=== PATIENT | male | born 1975 | race American Indian/Alaskan Native ===

== ENCOUNTER 2016-11-20 17:17 | Emergency (ER) | payer MEDICAID ==
[2016-11-20] MEDS ORDERED: Sodium Chloride 0.9% 1,000 ML IV ONE (18:01)
[2016-11-20] MEDS ORDERED: Sodium Chloride 0.9% 0 ML ONE (18:18)
[2016-11-20] MEDS ORDERED: Sodium Chloride 0.9% 1,000 ML ONE (18:20)
[2016-11-20 18:36] LABS: CHLORIDE 101 mmol/L (98-107)
[2016-11-20 18:37] LABS: SODIUM 137 mmol/L (132-148)
[2016-11-20 18:39] LABS: ALB/GLOB RATIO 1.2 (1.0-2.1); AST/SGOT 75 U/L (17-59); BASO # 0.1 K/uL (0.0-0.2); BILIRUBIN,TOTAL 3.2 mg/dL (0.2-1.3); CARBON DIOXIDE 24 mmol/L (22-30); EOS % 0.2 % (0.0-4.0); GFR AFRICAN-AMERICAN > 60; HEMATOCRIT 37.3 % (35.0-51.0); LYMPH # 1.1 K/uL (1.0-4.3); LYMPH % 19.3 % (20.0-40.0); MEAN CELL VOLUME 85.7 fL (80.0-94.0); MEAN CORPUSCULAR HEMOGLOBIN 27.6 pg (27.0-31.0); MEAN CORPUSCULAR HGB CONC 32.2 g/dL (33.0-37.0); MONO # 0.5 K/uL (0.0-0.8); MONO % 8.5 % (0.0-10.0); NRBC % 0.1 % (0.0-2.0); POTASSIUM 5.7 mmol/L (3.6-5.2); RED CELL DISTRIBUTION WIDTH 13.2 % (11.5-14.5); WHITE BLOOD COUNT 5.5 K/uL (4.8-10.8)
[2016-11-20 18:40] LABS: ALCOHOL SERUM < 10 mg/dl (0-10); ALKALINE PHOSPHATASE 71 U/L (38-126); ALT/SGPT 25 U/L (21-72); BLOOD UREA NITROGEN 18 mg/dL (9-20); CALCIUM 8.9 mg/dl (8.6-10.4); GLUCOSE,RANDOM 97 mg/dL (75-110)
[2016-11-20 19:29] LABS: CHLORIDE 101 mmol/L (98-107)
[2016-11-20 19:30] LABS: POTASSIUM 3.4 mmol/L (3.6-5.2); SODIUM 139 mmol/L (132-148)
[2016-11-20 19:32] LABS: GFR AFRICAN-AMERICAN > 60
[2016-11-20 19:33] LABS: BLOOD UREA NITROGEN 16 mg/dL (9-20); CALCIUM 8.6 mg/dl (8.6-10.4); CARBON DIOXIDE 25 mmol/L (22-30); GLUCOSE,RANDOM 80 mg/dL (75-110)
--- NOTE | 2016-11-20 20:10 | C.PDOC ---
History Of Present Illness 41 year old male presents to the ED with complaints of being in "withdrawl." Patient denies nausea, vomiting, chest pain, shortness of breath, fever, suicidal, or homicidal ideations. Time Seen by Provider: 11/20/16 17:54 Chief Complaint (Nursing): Substance Abuse History Per: Patient History/Exam Limitations: no limitations Onset/Duration Of Symptoms: Hrs Current Symptoms Are (Timing): Still Present Suicide/Self Injury Attempted (Context): None Associated Symptoms: denies: Suicidal Thoughts, Suicidal Plan Involuntary Hold By: None Recent travel outside of the [place]: No Past Medical History Reviewed: Historical Data, Nursing Documentation, Vital Signs Vital Signs: Last Vital Signs Temp 98.5 F 11/20/16 20:32 Pulse 84 11/20/16 20:32 Resp 18 11/20/16 20:32 BP 149/99 H 11/20/16 20:32 Pulse Ox 96 11/20/16 20:32 - Medical History PMH: Paranoia, Seizures (alcohol withdrawal) - [facility] Procedures DETOXIFICATION SERVICES FOR SUBSTANCE ABUSE TREATMENT (09/26/15) INDIV PSYCHOTHERAPY FOR SUBSTANCE ABUSE TREATMENT, SUPPORT (09/26/15) INDIV PSYCHOTHERAPY FOR SUBSTANCE ABUSE, PSYCHOEDUCATION (09/26/15) Family History: States: Unknown Family Hx - Social History Hx Alcohol Use: Yes Hx Substance Use: No - Immunization History Hx Tetanus Toxoid Vaccination: Yes Hx Influenza Vaccination: Yes Hx Pneumococcal Vaccination: No Review Of Systems Constitutional: Negative for: Fever, Chills Cardiovascular: Negative for: Chest Pain, Palpitations Respiratory: Negative for: Cough, Shortness of Breath Gastrointestinal: Negative for: Nausea, Vomiting, Abdominal Pain, Diarrhea Neurological: Negative for: Headache Physical Exam - Physical Exam Appears: Non-toxic, No Acute Distress Skin: Warm, Dry Head: Atraumatic Eye(s): bilateral: Normal Inspection, PERRL, EOMI Oral Mucosa: Moist Tongue: Normal Appearing, Other (tongue fasciculations) Neck: Supple Chest: Symmetrical, No Deformity Cardiovascular: Rhythm Regular, No Murmur Respiratory: Normal Breath Sounds, No Rales, No Rhonchi, No Wheezing Gastrointestinal/Abdominal: Soft, No Tenderness, No Distention, No Guarding, No Rebound Extremity: Normal ROM, No Tenderness Neurological/Psych: Oriented x3, Normal Speech, Normal Cognition, Other (No tremors. ) ED Course And Treatment - Laboratory Results Result Diagrams: 11/20/16 18:19 11/20/16 19:19 O2 Sat by Pulse Oximetry: 97 (room air ) Progress Note: Upon re-evaluation, patient is still not withdrawing. Disposition - Disposition Referrals: [facility], [Non-Staff] - Disposition: HOME/ ROUTINE Disposition Time: 19:40 Condition: GOOD Additional Instructions: Thank you for letting us take care of you today. Your provider was Dr. Brantley. The emergency medical care you received today was directed at your acute symptoms. If you were prescribed any medication, please fill it and take as directed. It may take several days for your symptoms to resolve. Return to the Emergency Department if your symptoms worsen, do not improve, or if you have any other problems. Please contact your doctor or call one of the physicians/clinics you have been referred to that are listed on the Patient Visit Information form that is included in your discharge packet. Bring any paperwork you were given at discharge with you along with any medications you are taking to your follow up visit. Our treatment cannot replace ongoing medical care by a primary care provider (PCP) outside of the emergency department. Thank you for allowing the [facility] team to be part of your care today. Follow up with your doctor in 2-3 days for re-evaluation and further management. Instructions: Abuse of Alcohol (ED) Forms: [employer] (Swedish) - Clinical Impression Clinical Impression: Alcohol dependence - Scribe Statement The provider has reviewed the documentation as recorded by the Scribe Regine Sidhu All medical record entries made by the Scribe were at my direction and personally dictated by me. I have reviewed the chart and agree that the record accurately reflects my personal performance of the history, physical exam, medical decision making, and the department course for this patient. I have also personally directed, reviewed, and agree with the discharge instructions and disposition.
[2016-11-20 20:33] VITALS: BP 149/99; PULSE 84; RESP 18; TEMP 98.5
[2016-11-20 21:34] VITALS: O2SAT 97
== END 2016-11-20 20:30 | disposition home or self-care (01) ==
LOC: C.ER 17:17
DX: F10.20 Alcohol dependence, uncomplicated (principal); Y90.0 Blood alcohol level of less than 20 mg/100 ml
CPT/HCPCS: 80048; 80053; 80320; 80324; 80345; 80346; 80349; 80353; 80358; 80361; 82948; 83690; 83992; 85025; 96361; 96374; 96375; 99284; J2405; J7040

== ENCOUNTER 2017-01-22 01:44 | Emergency (ER) | payer MEDICAID ==
[2017-01-22] MEDS ORDERED: Aspirin 325 mg EC Tablets PO STA (02:38)
--- NOTE | 2017-01-22 02:39 | C.PDOC ---
History Of Present Illness 41 y/o male with hx etoh abuse c/o left side cp starting about an hour prior to arrival while pt was in bed; denies any diaphoresis, radiation of pain, nausea, vomiting, shortness of breath. pt sts he feels like he may be in withdrawal form alcohol, last drink was 3 days ago. pt seen in ed 2 days ago, no detox bed available then, Time Seen by Provider: 01/22/17 01:59 Chief Complaint (Nursing): Chest Pain History Per: Patient History/Exam Limitations: no limitations Onset/Duration Of Symptoms: Hrs (1) Current Symptoms Are (Timing): Still Present Severity: Mild Quality: Sharp Associated Symptoms: denies: Nausea, Dyspnea, Diaphoresis, Syncope Modifying Factors: None Exacerbating Factors: None Past Medical History Reviewed: Historical Data, Nursing Documentation, Vital Signs Vital Signs: Last Vital Signs Temp 97.7 F 01/22/17 07:42 Pulse 70 01/22/17 07:16 Resp 14 01/22/17 07:16 BP 117/72 01/22/17 07:16 Pulse Ox 98 01/22/17 08:31 - Medical History PMH: Back Problems, Paranoia, Seizures (alcohol withdrawal) Denies: HIV, HTN, Chronic Kidney Disease, Sexually Transmitted Disease Other PMH: alcohol abuse - [facility] Procedures DETOXIFICATION SERVICES FOR SUBSTANCE ABUSE TREATMENT (09/26/15) INDIV PSYCHOTHERAPY FOR SUBSTANCE ABUSE TREATMENT, SUPPORT (09/26/15) INDIV PSYCHOTHERAPY FOR SUBSTANCE ABUSE, PSYCHOEDUCATION (09/26/15) Family History: States: Unknown Family Hx - Social History Hx Alcohol Use: Yes (4-8 beers daily) Hx Substance Use: No - Immunization History Hx Tetanus Toxoid Vaccination: No Hx Influenza Vaccination: No Hx Pneumococcal Vaccination: No Review Of Systems Constitutional: Negative for: Fever, Chills Cardiovascular: Positive for: Chest Pain. Negative for: Palpitations, Paroxysmal Noc. Dyspnea, Light Headedness Respiratory: Negative for: Cough, Shortness of Breath Gastrointestinal: Negative for: Nausea, Vomiting, Abdominal Pain Skin: Negative for: Rash Neurological: Negative for: Weakness, Numbness Physical Exam - Physical Exam Appears: Non-toxic, No Acute Distress, Other (dozing on stretcher, easily arousable) Skin: Warm, Dry Head: Atraumatic, Normacephalic Oral Mucosa: Moist Tongue: Other (no fasiculations) Neck: Supple Chest: No Deformity, Tenderness (minimal tenderness medial to left nipple,no swelling, ecchymosis, warmth noted. ) Cardiovascular: Rhythm Regular, No Murmur Respiratory: Normal Breath Sounds, No Accessory Muscle Use, No Rales, No Rhonchi , No Stridor, No Wheezing Gastrointestinal/Abdominal: Bowel Sounds, Soft, No Tenderness Extremity: Normal ROM, No Tenderness, No Calf Tenderness, No Swelling, Other ( no tremors. bilateral clubbing to nails of both hands. ) Neurological/Psych: Oriented x3, Normal Speech, Normal Cognition ED Course And Treatment - Laboratory Results Result Diagrams: 01/22/17 03:03 01/22/17 03:03 ECG: Interpreted By Me, Viewed By Me ECG Rhythm: Sinus Rhythm ECG Interpretation: Normal Interpretation Of ECG: nsr at 62 bpm O2 Sat by Pulse Oximetry: 98 Pulse Ox Interpretation: Normal Medical Decision Making Medical Decision Making: p;t with left sided cp x 1 hour, atypical sounding. pt in no acute distress. will get egk, cxr, labs, and re-eval. 555 am pt sleeping. easily aroused. pt reports cp resolved. pt to have second set ce at 8 am, d/c with cards f/u if neg. Disposition Counseled Patient/Family Regarding: Studies Performed, Diagnosis, Need For Followup - Disposition Referrals: [facility] [Outside] Disposition Time: 08:38 Condition: STABLE Instructions: Chest Pain (ED) Forms: [facility] (Thai), General Discharge Instructions - Clinical Impression Clinical Impression: Chest pain Physician Patient Turnover Patient Signed Over To: Ambika Ibarra Handoff Comments: d/c when second trop resulted neg
[2017-01-22 03:09] LABS: BASO # 0.1 K/uL (0.0-0.2); BASO % 1.2 % (0.0-2.0); EOS # 0.1 K/uL (0.0-0.7); EOS % 2.4 % (0.0-4.0); LYMPH % 33.4 % (20.0-40.0); MEAN CORPUSCULAR HEMOGLOBIN 27.8 pg (27.0-31.0); MEAN CORPUSCULAR HGB CONC 32.7 g/dL (33.0-37.0); MEAN PLATELET VOLUME 9.1 fL (7.2-11.7); MONO # 0.6 K/uL (0.0-0.8); MONO % 9.9 % (0.0-10.0); NRBC % 0.1 % (0.0-2.0); RED CELL DISTRIBUTION WIDTH 14.5 % (11.5-14.5); WHITE BLOOD COUNT 6.1 K/uL (4.8-10.8)
[2017-01-22 03:13] LABS: CHLORIDE 100 mmol/L (98-107); POTASSIUM 3.6 mmol/L (3.6-5.2); SODIUM 134 mmol/L (132-148)
[2017-01-22 03:15] LABS: BILIRUBIN,TOTAL 1.8 mg/dL (0.2-1.3); CARBON DIOXIDE 25 mmol/L (22-30); GFR AFRICAN-AMERICAN > 60
[2017-01-22 03:16] LABS: ALB/GLOB RATIO 1.1 (1.0-2.1); ALKALINE PHOSPHATASE 68 U/L (38-126); ALT/SGPT 41 U/L (21-72); AST/SGOT 32 U/L (17-59); BLOOD UREA NITROGEN 14 mg/dL (9-20); CALCIUM 9.2 mg/dl (8.6-10.4); GLUCOSE,RANDOM 78 mg/dL (75-110); TOTAL PROTEIN 8.1 g/dL (6.3-8.3)
[2017-01-22 03:17] LABS: ALCOHOL SERUM < 10 mg/dl (0-10)
[2017-01-22 07:21] VITALS: BP 117/72
[2017-01-22 08:32] VITALS: O2SAT 98
[2017-01-22 09:19] VITALS: PULSE 67; RESP 16; TEMP 97.8
--- NOTE | 2017-01-22 11:25 | RAD ---
HISTORY: chest pain COMPARISON: Chest x-ray performed 03/09/16 TECHNIQUE: Chest PA and lateral FINDINGS: LUNGS: No focal consolidation. Please note that chest x-ray has limited sensitivity for the detection of pulmonary masses. PLEURA: No significant pleural effusion identified. No definite pneumothorax. CARDIOVASCULAR: Heart size appears within normal limits. Mildly ectatic aorta. OSSEOUS STRUCTURES: No acute osseous abnormality identified. VISUALIZED UPPER ABDOMEN: Unremarkable. OTHER FINDINGS: None. IMPRESSION: No focal consolidation, significant pleural effusion, or definite pneumothorax identified.
--- NOTE | 2017-01-24 16:23 | CARD ---
APPROVED REPORT EKG Measurement Heart [id number] <Conclusion> Normal sinus rhythm Normal ECG
== END 2017-01-22 09:19 | disposition home or self-care (01) ==
LOC: C.ER 01:44
DX: R07.9 Chest pain, unspecified (principal)

== ENCOUNTER 2017-03-20 14:51 | Emergency (ER) | payer MEDICAID ==
[2017-03-20 15:39] VITALS: O2SAT 98
--- NOTE | 2017-03-20 17:53 | C.PDOC ---
History Of Present Illness Pt states that he is feeling withdrawal symptoms since his last alcohol intake was yesterday. Time Seen by Provider: 03/20/17 15:51 Chief Complaint (Nursing): Substance Abuse History Per: Patient Onset/Duration Of Symptoms: Days (1) Current Symptoms Are (Timing): Still Present Suicide/Self Injury Attempted (Context): None Modifying Factor(s): Alcohol Severity: Moderate Associated Symptoms: denies: Suicidal Thoughts, Suicidal Plan Additional History Per: Prior Records Past Medical History Reviewed: Historical Data, Nursing Documentation, Vital Signs Vital Signs: Last Vital Signs Temp 98.6 F 03/20/17 17:54 Pulse 98 H 03/20/17 17:54 Resp 18 03/20/17 17:54 BP 141/91 H 03/20/17 17:54 Pulse Ox 98 03/20/17 17:55 - Medical History PMH: Back Problems, Paranoia, Chronic Kidney Disease, Seizures (alcohol withdrawal) - [facility] Procedures DETOXIFICATION SERVICES FOR SUBSTANCE ABUSE TREATMENT (09/26/15) INDIV PSYCHOTHERAPY FOR SUBSTANCE ABUSE TREATMENT, SUPPORT (09/26/15) INDIV PSYCHOTHERAPY FOR SUBSTANCE ABUSE, PSYCHOEDUCATION (09/26/15) Family History: States: Unknown Family Hx - Social History Hx Alcohol Use: Yes Hx Substance Use: No - Immunization History Hx Tetanus Toxoid Vaccination: No Hx Influenza Vaccination: No Hx Pneumococcal Vaccination: No Review Of Systems Except As Marked, All Systems Reviewed And Found Negative. Constitutional: Negative for: Fever Cardiovascular: Negative for: Chest Pain Respiratory: Negative for: Shortness of Breath Gastrointestinal: Negative for: Vomiting, Abdominal Pain Musculoskeletal: Negative for: Neck Pain Skin: Negative for: Rash Neurological: Negative for: Weakness, Numbness, Seizures, Altered Mental Status Psych: Positive for: Withdrawal. Negative for: Psychosis Physical Exam - Physical Exam Appears: Non-toxic, No Acute Distress Skin: Normal Color, Warm, Dry Head: Atraumatic, Normacephalic Eye(s): bilateral: PERRL, EOMI Neck: Normal ROM, Supple Cardiovascular: Rhythm Regular Respiratory: Normal Breath Sounds, No Accessory Muscle Use Gastrointestinal/Abdominal: Soft, No Tenderness Back: No CVA Tenderness Extremity: Normal ROM Neurological/Psych: Oriented x3, Normal Speech, Normal Cognition, Normal Motor, Normal Sensation, Other (mild tremor) ED Course And Treatment O2 Sat by Pulse Oximetry: 98 Pulse Ox Interpretation: Normal Progress Note: I want to admit pt to detox from alcohol, however pt is not willing to stay today. He states that he must leave because he has an appointment tomorrow. I tried to convince him to stay today, but he is still refusing and wants to leave AMA. He feels better after the dose of Librium. Reassessment Condition: Improved Against Medical Advice - AMA Patient Left Against Medical Advice: The patient declines admission to the hospital and wishes to leave the Emergency Department. This action is against my medical advice. This decision was made with informed refusal. The patient was told that admission to the hospital is necessary. Explanation of the reasons why were discussed. The risks of leaving were explained to the patient and include, but are not limited to, worsening of known or currently unknown conditions, permanent disability and from undiagnosed or untreated conditions. The patient has the capacity to make this informed decision and understands my explanation of the current medical problem and risks of leaving. The patient voluntarily accepts these risks and signed an AMA form documenting our conversation. The patient was given the opportunity to ask questions and reconsider. The patient was encouraged to return to the Emergency Department at any time for further care. Disposition Counseled Patient/Family Regarding: Diagnosis, Need For Followup, Rx Given - Disposition Disposition: AGAINST MEDICAL ADVICE Disposition Time: 17:54 Condition: FAIR Additional Instructions: Follow up with your doctor as soon as possible. Return to the ER if you change your mind, develop worsening of symptoms or if you have any other concerns. Prescriptions: chlordiazePOXIDE [Chlordiazepoxide HCl] 25 mg PO PRN PRN #12 cap PRN Reason: Symptoms Of Alcohol Withdrawl Instructions: Abuse of Alcohol (ED), Against Medical Advice (ED) Forms: [employer] (Venezuelan) - Clinical Impression Clinical Impression: Alcohol abuse, Left against medical advice
[2017-03-20 17:56] VITALS: BP 141/91; PULSE 98; RESP 18; TEMP 98.6
== END 2017-03-20 18:13 | disposition left against medical advice (07) ==
LOC: C.ER 14:51
DX: F10.10 Alcohol abuse, uncomplicated (principal)

== ENCOUNTER 2017-09-01 14:18 | Emergency (ER) | payer MEDICAID ==
[2017-09-01 14:29] VITALS: BP 134/86; PULSE 85; RESP 18; TEMP 98.6; O2SAT 97
--- NOTE | 2017-09-01 15:26 | C.PDOC ---
History Of Present Illness 42 y/o male presents to the ED with a complaint of right 5th toe pain after tripping and sustaining an injury yesterday. Patient denies any sensory changes , bleeding, drainage or other injuries. No other physical complaints. Time Seen by Provider: 09/01/17 14:30 Chief Complaint (Nursing): Lower Extremity Problem/Injury History Per: Patient History/Exam Limitations: no limitations Onset/Duration Of Symptoms: Days (yesterday) Current Symptoms Are (Timing): Still Present Severity: Mild Recent travel outside of the [place]: No Past Medical History Reviewed: Historical Data, Nursing Documentation, Vital Signs Vital Signs: Last Vital Signs Temp 98.6 F 09/01/17 14:27 Pulse 85 09/01/17 14:27 Resp 18 09/01/17 14:27 BP 134/86 09/01/17 14:27 Pulse Ox 97 09/01/17 16:08 - Medical History PMH: Back Problems, Paranoia, Chronic Kidney Disease, Seizures (alcohol withdrawal) Surgical History: No Surg Hx - [facility] Procedures DETOXIFICATION SERVICES FOR SUBSTANCE ABUSE TREATMENT (09/26/15) INDIV PSYCHOTHERAPY FOR SUBSTANCE ABUSE TREATMENT, SUPPORT (09/26/15) INDIV PSYCHOTHERAPY FOR SUBSTANCE ABUSE, PSYCHOEDUCATION (09/26/15) Family History: States: No Known Family Hx - Social History Hx Tobacco Use: No Hx Alcohol Use: Yes Hx Substance Use: No - Immunization History Hx Tetanus Toxoid Vaccination: No Hx Influenza Vaccination: No Hx Pneumococcal Vaccination: No Review Of Systems Constitutional: Negative for: Fever, Chills Genitourinary: Negative for: Rash Musculoskeletal: Positive for: Foot Pain (right fifth toe pain) Neurological: Negative for: Weakness, Numbness, Headache Physical Exam - Physical Exam Appears: Well, Non-toxic, No Acute Distress Skin: Normal Color, Warm, Dry, No Rash, No Ecchymosis Cardiovascular: Rhythm Regular Respiratory: Normal Breath Sounds, No Rales, No Rhonchi, No Wheezing Extremity: Normal ROM, Tenderness (tenderness to palpation of right fifth toe, greater at lateral aspect), No Pedal Edema, No Calf Tenderness, Capillary Refill (< 2 sec all digits ), No Deformity, Swelling (mild swelling right fifth toe) Extremity: Bilateral: Normal Color And Temperature Pulses: Left Dorsalis Pedis: Normal, Right Dorsalis Pedis: Normal Neurological/Psych: Oriented x3, Normal Sensation Gait: Steady ED Course And Treatment O2 Sat by Pulse Oximetry: 97 (RA) Pulse Ox Interpretation: Normal - Other Rad right foot Xray X-Ray: Interpreted by Me, Viewed By Me (nondisplcaed fx 5th phalanx) Progress Note: Patient given PO Motrin. Xrays of right foot ordered and reviewed, showed nondisplaced fx 5th phalanx. Toe marcel taped by information technology architect. Patient givne Rx for pain medication and instructed to follow up with podiatry within 1 week. He understands he should return to ED if he has any concerning symptoms. Disposition Counseled Patient/Family Regarding: Studies Performed, Diagnosis, Need For Followup, Rx Given - Disposition Referrals: Podiatry Clinic [Outside] [facility] [Outside] Disposition: HOME/ ROUTINE Disposition Time: 15:30 Condition: STABLE Additional Instructions: FOLLOW UP WITH PODIATRY WITHIN 1 WEEK USE PAIN MEDICATION NEEDED ELEVATE FOOT SEVERAL TIMES DAILY Prescriptions: Acetaminophen [Tylenol 325mg tab] 650 mg PO Q6 PRN #30 tab PRN Reason: pain/fever Instructions: Toe Fracture (DC) Forms: [employer] (Ghanaian) Print Language: EAST TIMORESE - POA Present On Arrival: Falls Or Trauma - Clinical Impression Clinical Impression: Fracture of fifth toe, right, closed - Scribe Statement The provider has reviewed the documentation as recorded by the Scribe Sugar Milian All medical record entries made by the Scribe were at my direction and personally dictated by me. I have reviewed the chart and agree that the record accurately reflects my personal performance of the history, physical exam, medical decision making, and the department course for this patient. I have also personally directed, reviewed, and agree with the discharge instructions and disposition.
--- NOTE | 2017-09-01 15:30 | RAD ---
PROCEDURE: Right Foot Radiographs. HISTORY: right lateral foot/5th toe pain COMPARISON: None. FINDINGS: BONES: Questionable oblique nondisplaced fracture base of 5th distal phalanx. This is only seen in a single oblique view. No other fracture identified. JOINTS: Normal. SOFT TISSUES: Normal. OTHER FINDINGS: None. IMPRESSION: Questionable oblique nondisplaced intra-articular fracture base of 5th distal phalanx.
== END 2017-09-01 15:35 | disposition home or self-care (01) ==
LOC: C.ER 14:18
DX: S92.534A Nondisplaced fracture of distal phalanx of right lesser toe(s), initial encounter for closed fracture (principal); W01.0XXA Fall on same level from slipping, tripping and stumbling without subsequent striking against object, initial encounter; Y92.9 Unspecified place or not applicable

== ENCOUNTER 2018-07-06 17:48 | Inpatient (IN) | payer MEDICAID ==
[2018-07-06 19:43] LABS: BASO # 0.1 K/uL (0.0-0.2); EOS # 0.1 K/uL (0.0-0.7); LYMPH # 1.1 K/uL (1.0-4.3); MONO # 0.5 K/uL (0.0-0.8)
[2018-07-06 19:54] LABS: BASO % 2.8 % (0.0-2.0); LYMPH % 38.3 % (20.0-40.0); MEAN CELL VOLUME 88.3 fL (80.0-94.0); MEAN CORPUSCULAR HEMOGLOBIN 29.2 pg (27.0-31.0); MEAN CORPUSCULAR HGB CONC 33.1 g/dL (33.0-37.0); MEAN PLATELET VOLUME 9.5 fL (7.2-11.7); MONO % 17.5 % (0.0-10.0); NEUT # 1.1 K/uL (1.8-7.0); NEUT % 39.4 % (50.0-75.0); NRBC % 0.1 % (0.0-2.0); RBC 4.45 Mil/uL (4.40-5.90); RED CELL DISTRIBUTION WIDTH 16.9 % (11.5-14.5); WHITE BLOOD COUNT 2.8 K/uL (4.8-10.8)
[2018-07-06 19:59] LABS: ALB/GLOB RATIO 1.5 (1.0-2.1); ALBUMIN 4.7 g/dL (3.5-5.0); ALT/SGPT 132 U/L (21-72); AST/SGOT 253 U/L (17-59); BLOOD UREA NITROGEN 15 mg/dL (9-20); CALCIUM 8.8 mg/dl (8.6-10.4); GFR NON-AFRICAN AMERICAN > 60
[2018-07-06 20:20] LABS: URINE BILIRUBIN NEGATIVE (NEGATIVE); URINE CLARITY Clear (Clear); URINE COLOR YELLOW (YELLOW); URINE GLUCOSE (UA) NEGATIVE (Normal)
[2018-07-06 20:21] LABS: PH,URINE 5.5 (5.0-8.0); URINE BLOOD TRACE-INTACT (NEGATIVE); URINE LEUKOCYTE ESTERASE NEGATIVE Leu/uL (Negative); URINE PROTEIN NEGATIVE (NEGATIVE); URINE UROBILINOGEN 0.2E.U./dL mg/dL (0.2-1.0)
[2018-07-06 20:36] LABS: BARBITURATES, UR NEGATIVE (NEGATIVE); BENZODIAZEPINES, UR NEGATIVE (NEGATIVE); OPIATES, UR NEGATIVE (NEGATIVE); PHENCYCLIDINE, UR NEGATIVE (NEGATIVE)
--- NOTE | 2018-07-06 20:54 | C.PDOC ---
History Of Present Illness 43 year old male presents to ED requesting alcohol detox. Patient states that he had his last drink 3-4 hours ago. Patient drinks a combination of hard liquor and beer in various amounts. Patient has no physical complaints. Chief Complaint (Nursing): Substance Abuse History Per: Patient History/Exam Limitations: no limitations Onset/Duration Of Symptoms: Other (requesting detox) Suicide/Self Injury Attempted (Context): None Modifying Factor(s): Alcohol Past Medical History Reviewed: Historical Data, Nursing Documentation, Vital Signs Vital Signs: Last Vital Signs Temp 98.3 F 07/06/18 18:18 Pulse 115 H 07/06/18 18:18 Resp 18 07/06/18 18:18 BP 155/89 H 07/06/18 18:18 Pulse Ox 96 07/06/18 18:18 - Medical History PMH: Back Problems, Benign Prostatic Hyperplasia, Paranoia, Chronic Kidney Disease, Seizures (alcohol withdrawal) Surgical History: No Surg Hx - [facility] Procedures DETOXIFICATION SERVICES FOR SUBSTANCE ABUSE TREATMENT (09/26/15) INDIV PSYCHOTHERAPY FOR SUBSTANCE ABUSE TREATMENT, SUPPORT (09/26/15) INDIV PSYCHOTHERAPY FOR SUBSTANCE ABUSE, PSYCHOEDUCATION (09/26/15) Family History: States: Unknown Family Hx - Social History Hx Tobacco Use: No Hx Alcohol Use: Yes Hx Substance Use: No - Immunization History Hx Tetanus Toxoid Vaccination: No Hx Influenza Vaccination: No Hx Pneumococcal Vaccination: No Review Of Systems Constitutional: Negative for: Fever, Chills Cardiovascular: Negative for: Chest Pain Respiratory: Negative for: Shortness of Breath Gastrointestinal: Negative for: Nausea, Vomiting, Abdominal Pain Physical Exam - Physical Exam Appears: Well, Non-toxic, No Acute Distress Skin: Normal Color, Warm, Dry Head: Atraumatic, Normacephalic Neck: Normal ROM, Supple Chest: Symmetrical, No Deformity Cardiovascular: Rhythm Regular, No Murmur Respiratory: No Accessory Muscle Use, No Rales, No Rhonchi, No Wheezing Gastrointestinal/Abdominal: Soft, No Tenderness Neurological/Psych: Oriented x3, Normal Speech, Normal Cognition ED Course And Treatment - Laboratory Results Result Diagrams: 07/06/18 19:36 07/06/18 19:36 Lab Results: Total Bilirubin 0.8 mg/dL (0.2-1.3) 07/06/18 19:36 AST 253 U/L (17-59) H D 07/06/18 19:36 ALT 132 U/L (21-72) H D 07/06/18 19:36 Alkaline Phosphatase 92 U/L (38-126) 07/06/18 19:36 Total Protein 7.9 g/dL (6.3-8.3) 07/06/18 19:36 Albumin 4.7 g/dL (3.5-5.0) 07/06/18 19:36 Globulin 3.2 gm/dL (2.2-3.9) 07/06/18 19:36 Albumin/Globulin Ratio 1.5 (1.0-2.1) 07/06/18 19:36 Urine Color Yellow (YELLOW) 07/06/18 19:36 Urine Clarity Clear (Clear) 07/06/18 19:36 Urine pH 5.5 (5.0-8.0) 07/06/18 19:36 Ur Specific [place] 1.015 (1.003-1.030) 07/06/18 19:36 Urine Protein Negative mg/dL (NEGATIVE) 07/06/18 19:36 Urine Glucose (UA) Negative mg/dL (Normal) 07/06/18 19:36 Urine Ketones Negative mg/dL (NEGATIVE) 07/06/18 19:36 Urine Blood Trace-intact (NEGATIVE) 07/06/18 19:36 Urine Nitrate Negative (NEGATIVE) 07/06/18 19:36 Urine Bilirubin Negative (NEGATIVE) 07/06/18 19:36 Urine Urobilinogen 0.2e.u./dl mg/dL (0.2-1.0) 07/06/18 19:36 Ur Leukocyte Esterase Negative Ruth/uL (Negative) 07/06/18 19:36 O2 Sat by Pulse Oximetry: 96 (in RA) Medical Decision Making Medical Decision Making: Impression: 43 year old male presents to ED requesting alcohol detox. Plan: Labs ordered with drug screen and UA for patient Patient medically cleared for admission. Patient admitted under Dr. Gonzalez's service. Disposition - Disposition Disposition Time: 20:30 Condition: STABLE - Clinical Impression Clinical Impression: Alcohol use disorder, severe, dependence - Scribe Statement The provider has reviewed the documentation as recorded by the Scribe (Charis Velasco) All medical record entries made by the Scribe were at my direction and personally dictated by me. I have reviewed the chart and agree that the record accurately reflects my personal performance of the history, physical exam, medical decision making, and the department course for this patient. I have also personally directed, reviewed, and agree with the discharge instructions and disposition.
--- NOTE | 2018-07-06 21:25 | PCM.BM ---
<Rita Dobbs - Last Filed: 07/06/18 21:23> Treatment Plan Problems - Problems identified on initial assessmt Anxiety Related to Substance Abuse Date Initiated: 07/06/18 Time Initiated: 21:23 Assessment reference: NA Status: Active Defensive Coping Date Initiated: 07/06/18 Time Initiated: 21:23 Assessment reference: NA Status: Active Knowledge Deficit: Alcohol Use Date Initiated: 07/06/18 Time Initiated: 21:24 Assessment reference: NA Status: Active Treatment assets and liabiliti Patient Assests: ADL independent, negotiates basic needs, cognitively intact Patient Liabilities: substance abuse (Alcohol) - [facility] Protocol Maintain good personal hygiene: daily Encourage regular showers, daily Remind patient to perform daily oral care, daily Assist patient to perform ADL's Conduct patient checks and document Observation sheet: Q15 minutes Maintain personal safety: every shift Educate patient to report safety concerns to staff, every shift Monitor environment for contraband/sharps Medication safety: Monitor for expected outcome, potential side effects: every shift, Assess barriers to learning: every shift, Assess readiness for medication education: every shift <Yuri Gonzalez - Last Filed: 07/10/18 14:38> - Diagnosis (1) Alcohol use disorder, severe, dependence Status: Acute Interventions: 07/08/18 14:38 * Assess 7x/week regarding severity of withdrawal * Educate regarding risks, benefits, side effects and alternatives of medications * Use Motivational Interviewing for abstinence * Use CBT for relapse prevention * Medication management for withdrawal symptoms * Encourage medication assisted treatment *
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
[2018-07-07] MEDS: Multiple Vitamins Tab PO SCH (09:56)
[2018-07-08] MEDS: Multiple Vitamins Tab PO SCH (09:49)
--- NOTE | 2018-07-08 14:44 | PCM.PYCHPN ---
Psychiatric Progress Note - Psychiatric Progress Note Patient seen today, length of contact: 18 min Patient Chief Complaint: "OK" Problems Identified/Issues Discussed: The pt is seen, chart reviewed, case discussed with staff. The pt is compliant with medications and reports no side-effects. He is in DTs now - agitated, confused, disoriented Additional ativan and prn haldol will be used 1:1 is also possible SAfety precautions discussed Medication Change: Yes (meds adjusted) Medical Record Reviewed: Yes Mental Status Examination - Cognitive Function Orientation: Person, Place, Situation, Time Memory: Impaired Attention: Poor Concentration: Poor Association: Loose Fund of Knowledge: Poor - Mood Mood: Depressed, Anxious - Affect Affect: Constricted - Speech Speech: Appropriate - Formal Thought Process Formal Thought Process: No Impairment - Suicidal Ideation Suicidal Ideation: No - Homicidal Ideation Homicidal Ideation: No Goal/Treatment Plan - Goal/Treatment Plan Need for Continued Stay: Discharge may exacerbated symptoms, Severe functional impairment, Other (confused) Progress Toward Problem(s) and Goals/Treatment Plan: Taper with ativan, doses are adjusted prn meds 1:1 if needed Gabapentin for augmentation As needed medications All risks, benefits and alternatives of the meds discussed, and the pt agreed and understood. Attend groups and activities Supportive therapy and psychoeducation [place] for abstinence CBT for relapse prevention, depression and PTSD Encourage MAT Refer to rehab or IOP, and self-help groups Teach healthy lifestyle methods, i.e. diet, exercise, meditation Smoking cessation with [place] Nicotine patch if needed
[2018-07-09] MEDS: Multiple Vitamins Tab PO SCH (09:42)
[2018-07-10] MEDS: Multiple Vitamins Tab PO SCH (09:05)
--- NOTE | 2018-07-10 14:54 | PCM.PYCHPN ---
Psychiatric Progress Note - Psychiatric Progress Note Patient seen today, length of contact: 18 min Patient Chief Complaint: "OK" Problems Identified/Issues Discussed: The pt is seen, chart reviewed, case discussed with staff. The pt is compliant with medications and reports no side-effects. He is in DTs now - agitated, confused, disoriented Additional ativan and prn haldol will be used 1:1 is also possible SAfety precautions discussed Medication Change: Yes (meds adjusted) Medical Record Reviewed: Yes Mental Status Examination - Cognitive Function Orientation: Person, Place, Situation, Time Memory: Impaired Attention: Poor Concentration: Poor Association: Loose Fund of Knowledge: Poor - Mood Mood: Depressed, Anxious - Affect Affect: Constricted - Speech Speech: Appropriate - Formal Thought Process Formal Thought Process: No Impairment - Suicidal Ideation Suicidal Ideation: No - Homicidal Ideation Homicidal Ideation: No Goal/Treatment Plan - Goal/Treatment Plan Need for Continued Stay: Discharge may exacerbated symptoms, Severe functional impairment, Other (confused) Progress Toward Problem(s) and Goals/Treatment Plan: Taper with ativan, doses are adjusted prn meds 1:1 if needed Gabapentin for augmentation As needed medications All risks, benefits and alternatives of the meds discussed, and the pt agreed and understood. Attend groups and activities Supportive therapy and psychoeducation [place] for abstinence CBT for relapse prevention, depression and PTSD Encourage MAT Refer to rehab or IOP, and self-help groups Teach healthy lifestyle methods, i.e. diet, exercise, meditation Smoking cessation with [place] Nicotine patch if needed
--- NOTE | 2018-07-10 14:54 | PCM.PYCHPN ---
Psychiatric Progress Note - Psychiatric Progress Note Patient seen today, length of contact: 18 min Patient Chief Complaint: "OK" Problems Identified/Issues Discussed: The pt is seen, chart reviewed, case discussed with staff. The pt is compliant with medications and reports no side-effects. He is in DTs now - agitated, confused, disoriented Additional ativan and prn haldol will be used 1:1 is also possible SAfety precautions discussed Medication Change: Yes (meds adjusted) Medical Record Reviewed: Yes Mental Status Examination - Cognitive Function Orientation: Person, Place, Situation, Time Memory: Impaired Attention: Poor Concentration: Poor Association: Loose Fund of Knowledge: Poor - Mood Mood: Depressed, Anxious - Affect Affect: Constricted - Speech Speech: Appropriate - Formal Thought Process Formal Thought Process: No Impairment - Suicidal Ideation Suicidal Ideation: No - Homicidal Ideation Homicidal Ideation: No Goal/Treatment Plan - Goal/Treatment Plan Need for Continued Stay: Discharge may exacerbated symptoms, Severe functional impairment, Other (confused) Progress Toward Problem(s) and Goals/Treatment Plan: Taper with ativan, doses are adjusted prn meds 1:1 if needed Gabapentin for augmentation As needed medications All risks, benefits and alternatives of the meds discussed, and the pt agreed and understood. Attend groups and activities Supportive therapy and psychoeducation [place] for abstinence CBT for relapse prevention, depression and PTSD Encourage MAT Refer to rehab or IOP, and self-help groups Teach healthy lifestyle methods, i.e. diet, exercise, meditation Smoking cessation with [place] Nicotine patch if needed
[2018-07-11] MEDS: Multiple Vitamins Tab PO SCH (09:32)
[2018-07-11 14:10] LABS: EOS # 0.1 K/uL (0.0-0.7); EOS % 2.1 % (0.0-4.0); HEMOGLOBIN 13.8 g/dL (12.0-18.0); LYMPH # 1.2 K/uL (1.0-4.3); LYMPH % 27.3 % (20.0-40.0); MEAN CELL VOLUME 89.5 fL (80.0-94.0); MEAN CORPUSCULAR HEMOGLOBIN 29.3 pg (27.0-31.0); MEAN CORPUSCULAR HGB CONC 32.8 g/dL (33.0-37.0); MEAN PLATELET VOLUME 9.1 fL (7.2-11.7); MONO # 0.8 K/uL (0.0-0.8); MONO % 19.5 % (0.0-10.0); NEUT # 2.2 K/uL (1.8-7.0); NEUT % 50.1 % (50.0-75.0); NRBC % 0.1 % (0.0-2.0); RBC 4.7 Mil/uL (4.40-5.90); RED CELL DISTRIBUTION WIDTH 16.5 % (11.5-14.5)
[2018-07-11 14:12] LABS: WHITE BLOOD COUNT 4.3 K/uL (4.8-10.8)
[2018-07-11 14:14] LABS: ALB/GLOB RATIO 1.3 (1.0-2.1); ALBUMIN 4.8 g/dL (3.5-5.0); ALT/SGPT 74 U/L (21-72); AST/SGOT 75 U/L (17-59); BLOOD UREA NITROGEN 17 mg/dL (9-20); CALCIUM 9.9 mg/dl (8.6-10.4); GFR NON-AFRICAN AMERICAN > 60
--- NOTE | 2018-07-11 23:47 | PCM.PYCHPN ---
Psychiatric Progress Note - Psychiatric Progress Note Patient seen today, length of contact: 18 min Patient Chief Complaint: "OK" Problems Identified/Issues Discussed: The pt is seen, chart reviewed, case discussed with staff. The pt is compliant with medications and reports no side-effects. He is in DTs now - agitated, confused, disoriented Additional ativan and prn haldol will be used 1:1 is also possible SAfety precautions discussed Medication Change: Yes (meds adjusted) Medical Record Reviewed: Yes Mental Status Examination - Cognitive Function Orientation: Person, Place, Situation, Time Memory: Impaired Attention: Poor Concentration: Poor Association: Loose Fund of Knowledge: Poor - Mood Mood: Depressed, Anxious - Affect Affect: Constricted - Speech Speech: Appropriate - Formal Thought Process Formal Thought Process: No Impairment - Suicidal Ideation Suicidal Ideation: No - Homicidal Ideation Homicidal Ideation: No Goal/Treatment Plan - Goal/Treatment Plan Need for Continued Stay: Discharge may exacerbated symptoms, Severe functional impairment, Other (confused) Progress Toward Problem(s) and Goals/Treatment Plan: Taper with ativan, doses are adjusted prn meds 1:1 if needed Gabapentin for augmentation As needed medications All risks, benefits and alternatives of the meds discussed, and the pt agreed and understood. Attend groups and activities Supportive therapy and psychoeducation [place] for abstinence CBT for relapse prevention, depression and PTSD Encourage MAT Refer to rehab or IOP, and self-help groups Teach healthy lifestyle methods, i.e. diet, exercise, meditation Smoking cessation with [place] Nicotine patch if needed
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
[2018-07-12] MEDS: Multiple Vitamins Tab PO SCH (09:10)
[2018-07-12 10:04] VITALS: BP 126/87; PULSE 85; RESP 20; TEMP 97.6; O2SAT 100
== END 2018-07-12 09:50 | disposition home or self-care (01) | DRG 750 ==
LOC: C.ER 17:48 → C.7D 20:51
PROVIDERS: ADMIT Psychiatry & Neurology Psychiatry; ATTEND Psychiatry & Neurology Psychiatry
PROC: HZ2ZZZZ Detoxification Services for Substance Abuse Treatment (ICD-10-PCS; principal; 2018-07-06)
PROC: GZ3ZZZZ Medication Management (ICD-10-PCS; 2018-07-06)
PROC: HZ80ZZZ Medication Management for Substance Abuse Treatment, Nicotine Replacement (ICD-10-PCS; 2018-07-06)
PROC: HZ46ZZZ Group Counseling for Substance Abuse Treatment, Psychoeducation (ICD-10-PCS; 2018-07-06)
PROC: HZ59ZZZ Individual Psychotherapy for Substance Abuse Treatment, Supportive (ICD-10-PCS; 2018-07-06)
DX: F10.231 Alcohol dependence with withdrawal delirium (principal); F43.10 Post-traumatic stress disorder, unspecified; F32.9 Major depressive disorder, single episode, unspecified; F22 Delusional disorders; F17.210 Nicotine dependence, cigarettes, uncomplicated; N40.0 Benign prostatic hyperplasia without lower urinary tract symptoms; N18.9 Chronic kidney disease, unspecified; Y90.8 Blood alcohol level of 240 mg/100 ml or more